=== PATIENT | female | born 2000 | race Caucasian/White ===

== ENCOUNTER 2018-01-11 17:16 | Emergency (ER) | payer SELFPAY ==
[2018-01-11 17:58] LABS: ABS Basophils 0.1 10^3/ul (0-0.2); ABS Eosinophils 0.1 10^3/ul (0-0.6); ABS Lymphocytes 1.8 10^3/ul (1.0-4.8); ABS Monocytes 0.4 10^3/ul (0-0.8); ABS Neutrophils 4.4 10^3/ul (1.5-7.7); ABS Nucleated RBC 0 10^3/ul; Eosinophil % 1.8 % (0-6); Hematocrit 38 % (35-47); Hemoglobin 13.4 g/dl (12.0-16.0); Lymphocyte % 26.5 % (25-47); Mean Corpuscular HGB Conc 35 g/dl (31-36); Mean Corpuscular Hemoglobin 32 pg (27-31); Mean Corpuscular Volume 92 fL (80-97); Mean Platelet Volume 7.9 um3 (7.4-10.4); Nucleated Red Blood Cells % 0.1; Platelet Count 187 10^3/ul (150-450); Red Blood Count 4.17 10^6/ul (4.00-5.40); Red Cell Distribution Width 12 % (10.5-15); White Blood Count 6.8 10^3/ul (3.5-10.8)
[2018-01-11 18:15] LABS: EGFR Non-African American 109.6 (>60)
--- NOTE | 2018-01-11 18:23 | ED ---
- HPI Summary HPI Summary: Patient complains of sudden explosion of vaginal fluid today while driving the car. Also complains of intermittent vaginal discharge and itching over the past week. Positive home test 2 weeks ago, LMP end of October. Denies blood in vaginal fluid fluid, abdominal pain, fever, N/V, vaginal bleeding, urinary symptoms, SOB. . History of elective 4 months ago. Patient on OCPs. Medical history is none. - History of Current Complaint Chief Complaint: EDOBProblems Stated Complaint: 2 MONTHS PREG/LEAKAGE OF FLUID Time Seen by Provider: 01/11/18 17:37 Hx Obtained From: Patient Chief Complaint: Vaginal Discharge Onset/Duration: Started Hours Ago Current Severity: None Pain Intensity: 0 Location of Pain: None Character: None Associated Signs and Symptoms: Positive: Vaginal Bleeding or Discharge PMH/Surg Hx/FS Hx/Imm Hx Endocrine/Hematology History: Denies: Hx Anticoagulant Therapy Cardiovascular History: Denies: Hx Cardiac Arrest History: Denies: Hx Dialysis Neurological History: Denies: Hx CVA Infectious Disease History: No Infectious Disease History: Denies: Traveled Outside the [place] in Last 30 Days - Social History Alcohol Use: None Hx Substance Use: No Hx Tobacco Use: No Review of Systems Constitutional: Negative Eyes: Negative ENT: Negative Cardiovascular: Negative Respiratory: Negative Gastrointestinal: Negative Positive: see HPI, other Musculoskeletal: Negative Skin: Negative Neurological: Negative Psychological: Normal All Other Systems Reviewed And Are Negative: Yes Physical Exam - Physical Exam Triage Information Reviewed: Yes Vital Signs Reviewed: Yes Appearance: Positive: Well-Appearing Skin: Positive: Warm Head/Face: Positive: Normal Head/Face Inspection Eyes: Positive: Normal Neck: Positive: Supple Respiratory/Lung Sounds: Positive: Clear to Auscultation Cardiovascular: Positive: Normal Abdomen Description: Positive: Nontender Musculoskeletal: Positive: Normal Neurological: Positive: Normal Psychiatric: Positive: Normal AVPU Assessment: Alert - [place] Coma Scale Eye: 4 - Spontaneous Motor: 6 - Obeys Commands Verbal: 5 - Oriented Coma Scale Total: 15 Diagnostics - Vital Signs Vital Signs Temp Pulse Resp BP Pulse Ox 01/11/18 17:28 99.0 F 104 16 132/71 98 - Laboratory Lab Results: Lab Results 01/11/18 01/11/18 Range/Units 17:48 17:48 WBC 6.8 (3.5-10.8) 10^3/ul RBC 4.17 (4.00-5.40) 10^6/ul Hgb 13.4 (12.0-16.0) g/dl Hct 38 (35-47) % MCV 92 (80-97) fL MCH 32 H (27-31) pg MCHC 35 (31-36) g/dl RDW 12 (10.5-15) % Plt Count 187 (150-450) 10^3/ul MPV 7.9 (7.4-10.4) um3 Neut % (Auto) 65.1 (38-83) % Lymph % (Auto) 26.5 (25-47) % [place] % (Auto) 5.8 (0-7) % Eos % (Auto) 1.8 (0-6) % Baso % (Auto) 0.8 (0-2) % Absolute Neuts (auto) 4.4 (1.5-7.7) 10^3/ul Absolute Lymphs (auto) 1.8 (1.0-4.8) 10^3/ul Absolute Monos (auto) 0.4 (0-0.8) 10^3/ul Absolute Eos (auto) 0.1 (0-0.6) 10^3/ul Absolute Basos (auto) 0.1 (0-0.2) 10^3/ul Absolute Nucleated RBC 0 10^3/ul Nucleated RBC % 0.1 Sodium 137 (135-145) mmol/L Potassium 3.5 (3.5-5.0) mmol/L Chloride 104 (101-111) mmol/L Carbon Dioxide 25 (22-32) mmol/L Anion Gap 8 (2-11) mmol/L BUN 15 (6-24) mg/dL Creatinine 0.69 (0.51-0.95) mg/dL Est GFR ( Amer) 132.6 (>60) Est GFR (Non-Af Amer) 109.6 (>60) BUN/Creatinine Ratio 21.7 H (8-20) Glucose 95 (70-100) mg/dL Calcium 9.9 (8.6-10.3) mg/dL Total Bilirubin 0.40 (0.2-1.0) mg/dL AST 13 (13-39) U/L ALT 8 (7-52) U/L Alkaline Phosphatase 60 (34-104) U/L C-Reactive Protein < 1.00 (<8.01) mg/L Total Protein 7.2 (6.4-8.9) g/dL Albumin 4.5 (3.2-5.2) g/dL Globulin 2.7 (2-4) g/dL Albumin/Globulin Ratio 1.7 (1-3) Beta HCG, Quant Pending Result Diagrams: 01/11/18 17:48 01/11/18 17:48 Lab Statement: Any lab studies that have been ordered have been reviewed, and results considered in the medical decision making process. - Ultrasound No standard instances Ultrasound Interpretation: No Acute Changes - Intrauterine gestational sac corresponding to 5 weeks and 3 days. No evidence of pole. follow-up exam suggestive Course/Dx - Course Course Of Treatment: Patient complains of sudden explosion of vaginal fluid today while driving the car. Also complains of intermittent vaginal discharge and itching over the past week. Positive home test 2 weeks ago, LMP end of October. Denies blood in vaginal fluid fluid, abdominal pain, fever, N/V, vaginal bleeding, urinary symptoms, SOB. . History of elective 4 months ago. Patient on OCPs. Medical history is none. Vital signs within normal limits. Lab work unremarkable. Ultrasound positive for intrauterine gestational sac. Follow-up hCG and ultrasound in one week. - Diagnoses Provider Diagnoses: Discharge - Sign-Out/Discharge Documenting (check all that apply): Patient Departure - Discharge Plan Condition: Stable Disposition: HOME Patient Education Materials: (ED) Referrals: No Primary Care Phys,NOPCP [Primary Care Provider] - David Benitez MD [Medical Doctor] - Additional Instructions: Follow up with [facility] for repeat ultrasound and hCG level in one week. D for any new or worsening symptoms - Billing Disposition and Condition Condition: STABLE Disposition: Home
--- NOTE | 2018-01-11 19:55 | RAD ---
Indication: with cramping. Real-time sonography of the was performed. There is a intrauterine gestational sac measuring 0.8 cm corresponding to gestational age of 5 weeks 3 days. No pole is identified. Follow-up exam is suggested. Right ovary measures 3.5 x 3.2 x 2.1 cm. Left ovary measures 2.1 x 3.0 x 2.3 cm. Doppler interrogation demonstrates flow in both ovaries. IMPRESSION: There is an intrauterine gestational sac measuring 0.8 cm corresponding to gestational age of 5 weeks 3 days. Estimated date of delivery is September 10, 2018. No evidence of a pole is noted however. Follow-up exam is suggested.
[2018-01-11 20:35] VITALS: BP 94/53
== END 2018-01-11 20:35 | disposition home or self-care (01) ==
LOC: ED 17:16
DX: Z33.1 Pregnant state, incidental (principal); N89.8 Other specified noninflammatory disorders of vagina
CPT/HCPCS: 36415; 76817; 80053; 84702; 85025; 86140; 99282